=== PATIENT | female | born 1970 | race Caucasian/White ===

== ENCOUNTER 2017-06-23 06:37 | Emergency (ER) | payer OTHER ==
[~2017-06-23] VITALS: Ht 167.6 cm; Wt 94.3 kg
[2017-06-23 08:01] LABS: HEMATOCRIT 45.2 % (36.0-46.0); HEMOGLOBIN 15.3 G/DL (11.9-15.5); MCH 30.1 PG (29.0-34.0); MCHC 33.8 G/DL (30.0-36.0); PLATELET COUNT 257 K/uL (156-360); RBC DIS.WIDTH-CV 12.3 % (11.8-14.6); RBC DIS.WIDTH-SD 40.6 % (39-53); RED BLOOD COUNT 5.08 M/uL (3.80-5.20); WHITE BLOOD COUNT 10.4 K/uL (4.1-10.2)
[2017-06-23 08:21] LABS: CHLORIDE 106 mEq/L (99-109); POTASSIUM 3.9 mEq/L (3.7-5.4); SODIUM 140 mEq/L (136-147)
[2017-06-23 08:23] LABS: GLUCOSE 109 mg/dL (70-99)
[2017-06-23 08:24] LABS: TROP-I INTERPRETATION NEGATIVE; TROPONIN-I < 0.01 ng/mL (0.0-0.30)
[2017-06-23 08:27] LABS: CREATININE 0.8 mg/dL (0.6-1.3); GFR ESTIMATE (CALCULATED) > 59 mL/min/
[2017-06-23 08:28] LABS: UREA NITROGEN (BUN) 11 mg/dL (9-23)
[2017-06-23 09:27] LABS: ALBUMIN 4.6 g/dL (3.2-4.8)
[2017-06-23 09:30] LABS: TOTAL PROTEIN 7.4 g/dL (6.4-8.3)
[2017-06-23 09:32] LABS: TOTAL BILIRUBIN 0.4 mg/dL (0.0-1.0)
[2017-06-23 09:33] LABS: ALKALINE PHOSPHATASE 90 IU/L (3-129)
[2017-06-23 09:35] LABS: AST (GOT) 14 IU/L (2-34); DIRECT BILIRUBIN 0.2 mg/dL (0.0-0.3)
[2017-06-23 09:36] LABS: ALT (GPT) 20 IU/L (3-49)
[2017-06-23 10:51] LABS: TROP-I INTERPRETATION NEGATIVE; TROPONIN-I < 0.01 ng/mL (0.0-0.30)
[2017-06-23 10:56] LABS: LIPASE 27 U/L (1.0-51.0)
[2017-06-23] MEDS ORDERED: REGLAN10 MG PO (11:31)
[2017-06-23] MEDS ORDERED: CARAFATE1 GM PO (11:31)
[2017-06-23 11:51] VITALS: BP 170/104
== END 2017-06-23 12:11 | disposition home or self-care (01) ==
LOC: EME 06:37
PROVIDERS: Emergency Medicine
DX: K21.9 Gastro-esophageal reflux disease without esophagitis (principal); R07.9 Chest pain, unspecified; R11.2 Nausea with vomiting, unspecified; Z87.891 Personal history of nicotine dependence
CPT/HCPCS: 71046; 80048; 80076; 83690; 84484; 85027; 85379; 93005; 99281; 99285

== ENCOUNTER 2017-07-15 07:11 | Day surgery (SDC) | payer OTHER ==
[~2017-07-15] VITALS: Ht 167.6 cm; Wt 92.0 kg
[~2017-07-15 07:11] MED LIST: ACID REDUCER150 MG PO; ATIVAN1 MG PO; CARAFATE1 GM PO; CRESTOR10 MG PO; OMEPRAZOLE40 M1 PO; REGLAN10 MG PO; TYLENOL REGULA325 MG PO
[2017-07-15 07:43] VITALS: BP 139/83
[2017-07-15 12:35] LABS: HEMATOCRIT 30.5 % (36.0-46.0); MCH 30.7 PG (29.0-34.0); MCHC 33.8 G/DL (30.0-36.0); PLATELET COUNT 261 K/uL (156-360); RBC DIS.WIDTH-CV 12.4 % (11.8-14.6); RBC DIS.WIDTH-SD 41.1 % (39-53)
[2017-07-15 12:38] LABS: HEMOGLOBIN 10.3 G/DL (11.9-15.5); RED BLOOD COUNT 3.35 M/uL (3.80-5.20)
[2017-07-15 14:35] VITALS: BP 104/56
[2017-07-15 19:40] VITALS: BP 119/62
[2017-07-15 23:10] VITALS: BP 120/70
[2017-07-16 03:27] VITALS: BP 115/57
[2017-07-16 06:05] LABS: BASOPHIL (%) 0.1 % (0-1); EOSINOPHIL (%) 0.1 % (0-5); HEMATOCRIT 27.5 % (36.0-46.0); HEMOGLOBIN 8.9 G/DL (11.9-15.5); IMMATURE GRANULOCYTE (%) 0.4 % (0.0-0.7); LYMPHOCYTE (%) 19.1 % (15-42); MCH 29.4 PG (29.0-34.0); MCHC 32.4 G/DL (30.0-36.0); MCV 90.8 FL (83-99); MONOCYTE (%) 7.5 % (3-12); MONOCYTE COUNT 0.8 K/uL (0-0.8); NEUTROPHIL (%) 72.8 % (45-76); NEUTROPHIL COUNT 7.6 K/uL (1.8-6.4); PLATELET COUNT 238 K/uL (156-360); RBC DIS.WIDTH-CV 12.7 % (11.8-14.6); RBC DIS.WIDTH-SD 41.6 % (39-53); RED BLOOD COUNT 3.03 M/uL (3.80-5.20); WHITE BLOOD COUNT 10.4 K/uL (4.1-10.2)
[2017-07-16 06:24] LABS: ALBUMIN 3.5 G/DL (3.2-4.8); CHLORIDE 107 MEQ/L (99-109); CREATININE 0.6 MG/DL (0.6-1.3); GFR ESTIMATE (CALCULATED) > 59 mL/min/; GLUCOSE 106 mg/dL (70-99); POTASSIUM 3.9 MEQ/L (3.7-5.4); SODIUM 142 MEQ/L (136-147); UREA NITROGEN (BUN) 9 mg/dL (9-23)
[2017-07-16 06:26] LABS: ALKALINE PHOSPHATASE 53 IU/L (3-129); ALT (GPT) 72 IU/L (3-49); AST (GOT) 48 IU/L (2-34); TOTAL BILIRUBIN 0.5 MG/DL (0.0-1.0); TOTAL PROTEIN 5.1 G/DL (6.4-8.3)
[2017-07-16 07:22] VITALS: BP 113/62
[2017-07-16] MEDS ORDERED: HYDROCODON-ACE1 EAC7 PO (09:52)
[2017-07-16 11:08] VITALS: BP 107/57
[2017-07-16 15:29] VITALS: BP 134/63
[2017-07-16 20:43] VITALS: BP 133/67
[2017-07-16 23:35] VITALS: BP 126/67
[2017-07-17 03:57] VITALS: BP 136/76
[2017-07-17 08:59] VITALS: BP 141/77
[2017-07-17 09:53] LABS: HEMATOCRIT 26.5 % (36.0-46.0); HEMOGLOBIN 8.8 G/DL (11.9-15.5); MCHC 33.2 G/DL (30.0-36.0); MCV 93.3 FL (83-99); PLATELET COUNT 192 K/uL (156-360); RBC DIS.WIDTH-CV 12.9 % (11.8-14.6); RBC DIS.WIDTH-SD 44.4 % (39-53); RED BLOOD COUNT 2.84 M/uL (3.80-5.20); WHITE BLOOD COUNT 8.6 K/uL (4.1-10.2)
[2017-07-17 10:11] LABS: ALBUMIN 3.6 G/DL (3.2-4.8); ALKALINE PHOSPHATASE 57 IU/L (3-129); ALT (GPT) 48 IU/L (3-49); CHLORIDE 107 MEQ/L (99-109); CREATININE 0.6 MG/DL (0.6-1.3); GFR ESTIMATE (CALCULATED) > 59 mL/min/; GLUCOSE 130 mg/dL (70-99); POTASSIUM 3.6 MEQ/L (3.7-5.4); SODIUM 143 MEQ/L (136-147); TOTAL BILIRUBIN 0.4 MG/DL (0.0-1.0); TOTAL PROTEIN 5.4 G/DL (6.4-8.3); UREA NITROGEN (BUN) 6 mg/dL (9-23)
[2017-07-17 10:12] LABS: AST (GOT) 21 IU/L (2-34)
== END 2017-07-17 14:53 | disposition home or self-care (01) ==
LOC: SDC 07:11 → 2EAST 12:00 → 2SOUTH 12:00 → ENRESERV 12:06 → 2EAST 14:36 → SDC 16:05 → ENPENDDIS 07-17 → 2EAST 07-17 14:53
PROVIDERS: Physician Assistant Surgical; Student in an Organized Health Care Education/Training Program
PROC: 0FT44ZZ Resection of Gallbladder, Percutaneous Endoscopic Approach (ICD-10-PCS; principal; 2017-07-15)
DX: K80.12 Calculus of gallbladder with acute and chronic cholecystitis without obstruction (principal); I97.42 Intraoperative hemorrhage and hematoma of a circulatory system organ or structure complicating other procedure; K76.0 Fatty (change of) liver, not elsewhere classified; K66.0 Peritoneal adhesions (postprocedural) (postinfection); K21.9 Gastro-esophageal reflux disease without esophagitis; E66.9 Obesity, unspecified; Z68.32 Body mass index [BMI] 32.0-32.9, adult; E78.4 Other hyperlipidemia; R73.03 Prediabetes
CPT/HCPCS: 80053; 85025; 85027; 86850; 86900; 86901; 86920; 88304; G0378; J0330; J0690; J1100; J1170; J2250; J2405; J2710; J3010; J7120; P9045; S0020